=== PATIENT | male | born 1940 | race Caucasian/White ===

== ENCOUNTER 2018-11-22 22:11 | Inpatient (IN) | payer MEDICARE ==
[2018-11-22 23:14] LABS: ABS Basophils 0.1 10^3/ul (0-0.2); ABS Lymphocytes 0.8 10^3/ul (1.0-4.8); ABS Monocytes 0.3 10^3/ul (0-0.8); ABS Neutrophils 9.4 10^3/ul (1.5-7.7); Eosinophil % 0.3 %; Hematocrit 44 % (42-52); Hemoglobin 14.8 g/dL (14.0-18.0); Lymphocyte % 7.8 %; Mean Corpuscular HGB Conc 33 g/dL (31-36); Mean Corpuscular Hemoglobin 29 pg (27-31); Mean Corpuscular Volume 86 fL (80-94); Mean Platelet Volume 6.9 fL (7.4-10.4); Platelet Count 283 10^3/uL (150-450); Red Blood Count 5.16 10^6 /uL (4.18-5.48); Red Cell Distribution Width 14 % (10-15); White Blood Count 10.6 10^3/uL (3.5-10.8)
[2018-11-22 23:26] LABS: Activated Partial Thrombo Time 34.5 seconds (26.0-38.0); INR 1.04 (0.82-1.09)
[2018-11-22 23:29] LABS: ALT 28 U/L (7-52); AST 20 U/L (13-39); Albumin 4.2 g/dL (3.2-5.2); Albumin/Globulin Ratio 1.5 (1-3); Alkaline Phosphatase 100 U/L (34-104); Anion Gap 7 mmol/L (2-11); BUN/Creatinine Ratio 19.2 (8-20); Blood Urea Nitrogen 20 mg/dL (6-24); CO2 Carbon Dioxide 26 mmol/L (22-32); Calcium 9.8 mg/dL (8.6-10.3); Chloride 106 mmol/L (101-111); EGFR African American 83.6 (>60); EGFR Non-African American 69.1 (>60); Globulin 2.8 g/dL (2-4); Glucose 199 mg/dL (70-100); Sodium 139 mmol/L (135-145)
[2018-11-22 23:42] LABS: Troponin I 0.22 ng/mL (<0.04)
[2018-11-22] MEDS ORDERED: Metoprolol Tartrate IV* 1 MG/ML 5 ML VIAL IV ONE (23:44)
[2018-11-22] MEDS ORDERED: Enoxaparin(*) 100 MG/ML SYR SUBCUT ONE (23:44)
[2018-11-23] MEDS ORDERED: NS 0.9% 1000 ML** 1,000 ML IV SCH ×3 (00:30→13:00)
[2018-11-23] MEDS ORDERED: Metoprolol Tartrate TAB* 25 MG PO ONE (00:30)
[2018-11-23] MEDS ORDERED: Dextrose 50% VIAL 50 ml IV PUSH PRN (00:31)
[2018-11-23] MEDS ORDERED: Morphine 4 MG/ML VIAL (1 ml) 4 MG/ML VIAL IV ONE (00:32)
[2018-11-23] MEDS ORDERED: Ondansetron INJ* 2 MG/ML VIAL IV ONE (00:33)
[2018-11-23] MEDS ORDERED: Albuterol HFA INHALER* 8 gm MDI INH PRN (00:35)
[2018-11-23] MEDS ORDERED: Nitro 2% OINT* (Nitroglycerin) 1 INCH/PAK PAK TOPICAL ONE (00:50)
[2018-11-23] MEDS ORDERED: Morphine INJ* 2 MG/ML 1 ML SYRINGE (TWO MG - NEW SYRINGE VERSION) IV PRN (00:50)
--- NOTE | 2018-11-23 01:20 | ED ---
HPI Chest Pain - HPI Summary HPI Summary: The pt is a 78 yr old male presenting to [facility] via EMS c/o chest pain beginning 3 hours [employer]. He was walking when the chest pain started and reports diaphoresis as well. SOB and nausea are denied. The pain was bilateral across his chest and radiated through to the back. He states that the pain subsided when he was at rest and increased when he began walking again. He is currently in pain and describes his chest as feeling bruised, rating its severity a 3/10. He mentions that he had a similar episode of CP several years ago. He has not had a stress test before. The pt takes blood pressure medication and aspirin at home , and was administered 324 mg ASA and 3 nitro in the EMS. He has Hx of HTN, COPD , and Asthma. - History of Current Complaint Chief Complaint: EDChestPainROMI Time Seen by Provider: 11/22/18 22:26 Hx Obtained From: Patient Onset/Duration: Started Hours Ago, Still Present Time of Onset: 19:00 Timing: Intermittent Initial Severity: Mild Current Severity: Mild Pain Intensity: 3 Pain Scale Used: 0-10 Numeric Chest Pain Location: Diffuse Chest Pain Radiates: Yes Chest Pain Radiates To:: Back Character: Other: - "Bruised" Aggravating Factor(s): Exertion Alleviating Factor(s): Rest Associated Signs and Symptoms: Positive: Chest Pain, Diaphoresis. Negative: Shortness of Breath, Nausea - Allergy/Home Medications Allergies/Adverse Reactions: Allergies Allergy/AdvReac Type Severity Reaction Status Date / Time No Known Drug Allergies Allergy See Comment Verified 11/23/18 00:39 ENVIRONMENTAL Allergy Intermediate See Comment Uncoded 10/12/16 08:36 Home Medications: Home Medications Chlorhexidine MW 0.12% 473ML* [Peridex Mouth Wash 0.12%] 1 dose PO DAILY [History Confirmed 11/22/18] Metformin ER (NF) [Glucophage ER 750 MG TAB (NF)] 750 mg PO 1700 11/22/18 [ History Confirmed 11/22/18] [place]-3S/Dha/Epa/Fish Oil [Fish Oil 1,200 mg Softgel] 1 cap PO BID 11/22/18 [ History Confirmed 11/22/18] Polyethylene Glycol 3350* [Miralax*] 17 gm PO DAILY 11/22/18 [History Confirmed 11/22/18] PMH/Surg Hx/FS Hx/Imm Hx Endocrine/Hematology History: Reports: Hx Diabetes, Hx Anemia - CURRENTLY Cardiovascular History: Reports: Hx Hypertension - on meds, Other Cardiovascular Problems/Disorders - htn Denies: Hx Peripheral Vascular Disease Respiratory History: Reports: Hx Asthma - enviornmental, Hx Chronic Obstructive Pulmonary Disease (COPD) Denies: Other Respiratory Problems/Disorders GI History: Reports: Hx Gastroesophageal Reflux Disease, Other GI Disorders - colon cancer History: Denies: Hx Renal Disease Musculoskeletal History: Reports: Hx Arthritis - KNEES, Hx Back Problems, Hx Tendonitis - ROB SHOULDERS, Other Musculoskeletal History - OSTOEARTHORITI ON FINGERS Sensory History: Reports: Hx Contacts or Glasses - READING Denies: Hx Hearing Aid Opthamlomology History: Reports: Hx Contacts or Glasses - READING Neurological History: Denies: Other Neuro Impairments/Disorders - Cancer History Cancer Type, Location and Year: colon CA Hx Chemotherapy: No - Surgical History Surgery Procedure, Year, and Place: tonsils-1956; 3 abdominal surgeries Hx Anesthesia Reactions: No Infectious Disease History: No Infectious Disease History: Denies: Hx Clostridium Difficile, Hx Hepatitis, Hx Human Immunodeficiency Virus (HIV), Hx of Known/Suspected MRSA, Hx Shingles, Hx Tuberculosis, Hx Known/ Suspected VRE, Hx Known/Suspected VRSA, History Other Infectious Disease, Traveled Outside the [place] in Last 30 Days - Family History Known Family History: Negative: Blood Disorder - Social History Alcohol Use: Occasionally Alcohol Amount: 1 PER WEEK Substance Use Type: Reports: None Smoking Status (MU): Former Smoker Amount Used/How Often: PIPE 2 OZ PER DAY Length of Time of Smoking/Using Tobacco: 1984 Have You Smoked in the Last Year: No Review of Systems Positive: Skin Diaphoresis Positive: Chest Pain Negative: Shortness Of Breath Negative: Nausea All Other Systems Reviewed And Are Negative: Yes Physical Exam - Summary Physical Exam Summary: VITAL SIGNS: Reviewed. GENERAL: Patient is a well-developed and nourished male who is lying comfortable in the stretcher. Patient is not in any acute respiratory distress. HEAD AND FACE: No signs of trauma. No ecchymosis, hematomas or skull depressions. No sinus tenderness. EYES: PERRLA, EOMI x 2, No injected conjunctiva, no nystagmus. EARS: Hearing grossly intact. Ear canals and tympanic membranes are within normal limits. MOUTH: Oropharynx within normal limits. NECK: Supple, trachea is midline, no adenopathy, no JVD, no carotid bruit, no c- spine tenderness, neck with full ROM CHEST: Symmetric, no tenderness at palpation LUNGS: Clear to auscultation bilaterally. No wheezing or crackles. CVS: Regular rate and rhythm, S1 and S2 present, no murmurs or gallops appreciated. ABDOMEN: Soft, non-tender. No signs of distention. No rebound no guarding, and no masses palpated. Bowel sounds are normal. EXTREMITIES: FROM in all major joints, no edema, no cyanosis or clubbing. NEURO: Alert and oriented x 3. No acute neurological deficits. Speech is normal and follows commands. SKIN: Dry and warm Triage Information Reviewed: Yes Vital Signs On Initial Exam: Initial Vitals Temp Pulse Resp BP Pulse Ox 98 F 83 18 160/85 94 11/22/18 22:16 11/22/18 22:16 11/22/18 22:16 11/22/18 22:16 11/22/18 22:16 Vital Signs Reviewed: Yes Diagnostics - Vital Signs Vital Signs Temp Pulse Resp BP Pulse Ox 11/23/18 00:32 78 16 149/87 96 11/23/18 00:27 78 18 163/86 94 11/23/18 00:22 77 19 169/94 96 11/23/18 00:20 82 18 161/87 94 11/23/18 00:01 80 20 97 11/22/18 23:50 77 18 152/83 97 11/22/18 23:42 81 19 97 11/22/18 23:20 72 13 143/73 97 11/22/18 23:00 74 14 98 11/22/18 22:50 78 16 137/78 96 11/22/18 22:20 75 18 160/85 96 11/22/18 22:19 90 17 95 11/22/18 22:16 98 F 83 18 160/85 94 - Laboratory Lab Results: Lab Results 11/22/18 11/22/18 11/22/18 Range/Units 23:07 23:07 23:07 WBC 10.6 (3.5-10.8) 10^3/uL RBC 5.16 (4.18-5.48) 10^6 /uL Hgb 14.8 (14.0-18.0) g/dL Hct 44 (42-52) % MCV 86 (80-94) fL MCH 29 (27-31) pg MCHC 33 (31-36) g/dL RDW 14 (10-15) % Plt Count 283 (150-450) 10^3/uL MPV 6.9 L (7.4-10.4) fL Neut % (Auto) 88.3 % Lymph % (Auto) 7.8 % [place] % (Auto) 3.0 % Eos % (Auto) 0.3 % Baso % (Auto) 0.6 % Absolute Neuts (auto) 9.4 H (1.5-7.7) 10^3/ul Absolute Lymphs (auto) 0.8 L (1.0-4.8) 10^3/ul Absolute Monos (auto) 0.3 (0-0.8) 10^3/ul Absolute Eos (auto) 0.0 (0-0.6) 10^3/ul Absolute Basos (auto) 0.1 (0-0.2) 10^3/ul Absolute Nucleated RBC 0.0 10^3/ul Nucleated RBC % 0.0 INR (Anticoag Therapy) 1.04 (0.82-1.09) APTT 34.5 (26.0-38.0) seconds Sodium 139 (135-145) mmol/L Potassium 4.0 (3.5-5.0) mmol/L Chloride 106 (101-111) mmol/L Carbon Dioxide 26 (22-32) mmol/L Anion Gap 7 (2-11) mmol/L BUN 20 (6-24) mg/dL Creatinine 1.04 (0.67-1.17) mg/dL Est GFR ( Amer) 83.6 (>60) Est GFR (Non-Af Amer) 69.1 (>60) BUN/Creatinine Ratio 19.2 (8-20) Glucose 199 H (70-100) mg/dL Calcium 9.8 (8.6-10.3) mg/dL Total Bilirubin 0.50 (0.2-1.0) mg/dL AST 20 (13-39) U/L ALT 28 (7-52) U/L Alkaline Phosphatase 100 (34-104) U/L Troponin I 0.22 H* (<0.04) ng/mL Total Protein 7.0 (6.4-8.9) g/dL Albumin 4.2 (3.2-5.2) g/dL Globulin 2.8 (2-4) g/dL Albumin/Globulin Ratio 1.5 (1-3) Result Diagrams: 11/22/18 23:07 11/22/18 23:07 Lab Statement: Any lab studies that have been ordered have been reviewed, and results considered in the medical decision making process. - Radiology CXR Radiology Interpretation Completed By: ED Physician Summary of Radiographic Findings: No acute processes, pending official report. - EKG 0000 Cardiac Rate: NL - 76 BPM EKG Rhythm: Sinus Rhythm Summary of EKG Findings: Normal axis. Normal interval. No ischemic changes. 0025 Cardiac Rate: NL - 74 BPM EKG Rhythm: Sinus Rhythm EKG Comparison: No Significant Change - from EKG at 0000 Summary of EKG Findings: Normal axis. Normal interval. No ischemic changes. Re-Evaluation - Re-Evaluation First Eval Re-Evaluation Time: 00:25 Change: Unchanged Comment: Pt was feeling chest pain again. The pt was given morphine, lovenox, and moteprolol. 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 He was walking when the chest pain started and reports diaphoresis as well. SOB and nausea are denied. The pain was bilateral across his chest and radiated through to the back. He states that the pain subsided when he was at rest and increased when he began walking again. He is currently in pain and describes his chest as feeling bruised, rating its severity a 3/10. He mentions that he had a similar episode of CP several years ago. The pt takes blood pressure medication and aspirin at home, and was administered 324 mg ASA and 3 nitro in the EMS. He has Hx of HTN, COPD, and Asthma. An EKG taken @ 0000 reveals sinus rhythm, normal rate @ 76 bpm, normal axis, normal interval, no ischemic changes. A repeat EKG taken @ 0025 reveals sinus rhythm, normal rate @ 74 bpm, normal axis, normal interval, no ischemic changes, and no significant changes from the previous EKG @ 0000. A CXR reveals no acute processes. Test results with no significant abnormalities except for MPV @ 6.9, Absolute Neuts @ 9.4, Absolute Lymphs @ 0.8, Glucose @ 199, and Troponin I @ 0.22. In the ED course the pt was given 90 mg Lovenox SUBCUT, 5 mg Lopressor IV, 25 mg Lopressor PO, 4 mg Morphine IV, 0.5 inch NTG TOPICAL, and [address] De Guzman was consulted @ 4123. Dr. De Guzman will admit the pt to [facility]. - Diagnoses Provider Diagnoses: Acute coronary syndrome - Provider Notifications Discussed Care Of Patient With: Shari De Guzman Time Discussed With Above Provider: 23:50 Instructed by Provider To: Admit As Inpatient Discharge - Sign-Out/Discharge Documenting (check all that apply): Patient Departure - admit Patient Received Moderate/Deep Sedation with Procedure: No - Discharge Plan Condition: Stable Disposition: ADMITTED TO [facility] - Attestation Statements Document Initiated by Scribe: Yes Documenting Scribe: FRANCIS RODNEY Provider For Whom Scribe is Documenting (Include Credential): TONY ANTONIO MD Scribe Attestation: IFRANCIS, scribed for TONY ANTONIO MD on 11/23/18 at 0206. Status of Scribe Document: Ready
[2018-11-23 01:59] LABS: Troponin I 1.06 ng/mL (<0.04)
[2018-11-23] MEDS: Acetaminophen TAB* 325 MG PO PRN ×2 (02:38→21:16)
--- NOTE | 2018-11-23 04:44 | HP ---
CC: Dr. Christopher Mojica; Dr. Patton * HISTORY AND PHYSICAL: DATE OF ADMISSION: 11/23/18 PRIMARY CARE PROVIDER: Dr. Christopher Mojica. ONCOLOGY: Dr. Patton. CHIEF COMPLAINT: Chest pain. HISTORY OF PRESENT ILLNESS: Parrish Masterson is a 78-year-old male with history of colon cancer, status post resection in 2012 and currently in remission, who presented to the emergency department with concerns of chest pain. The patient stated that he has been having mild chest pains with exercise for the past 3 to 4 years. He stated that he was not very concerned about them since they did not happen "all the time with exercise." Today, he was walking down the hill to see a construction work side close to his home and started having mild chest pain with walking. On his way back when he had to walk up the hill, the chest pain was more severe. When he stopped, the pain would go away and then started again. Eventually, he got home and the pain went away for about 15 minutes but then it restarted again when he got up to call his sister. At that point, it was 9/10 in intensity, he broke out in a sweat and he was nauseated. He denied any shortness of breath. He was given nitroglycerin in the ambulance and the pain basically went away. He currently has discomfort substernally approximately 1 to 2. The pain is not pleuritic. It is localized substernally, radiating to bilateral lower chest and the back. His troponin was 0.22 and he is going to be admitted with a diagnosis of unstable angina. PAST MEDICAL HISTORY: 1. History of colon adenocarcinoma, status post ileostomy, ileostomy reversal and colon cancer resection over the course of the years of 2012 and 2013. The patient did not receive chemo or radiation at that point and that was his choice , although it was offered for him at that point. He is now in remission for the past 5 years. 2. History of hypertension. 3. History of asthma. 4. History of gastroesophageal reflux disease. 5. Diabetes type 2. MEDICATIONS AT HOME: Include: 1. Metformin ER mg daily. 2. Fish oil 1 capsule b.i.d. 3. Chlorhexidine mouthwash on a p.r.n. basis. 4. MiraLax 17 g daily p.r.n. 5. Amlodipine 10 mg daily. 6. Albuterol inhaler on a p.r.n. basis. 7. Accolate 20 mg b.i.d. 8. Prevacid 15 mg daily. ALLERGIES: No known drug allergies. FAMILY HISTORY: Positive for father with history of carcinoma, of [place] in his 60s. SOCIAL HISTORY: The patient quit smoking in 1983. He denies any alcohol or drug use. His in the past year with colon cancer. 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 As his surrogate, he names his son, Mejia Masterson. REVIEW OF SYSTEMS: Please see history of present illness. All the remaining 12 systems were reviewed with the patient and were otherwise negative. PHYSICAL EXAMINATION GENERAL: The patient is a very pleasant 78-year-old male, who is in no acute distress. Alert, awake, and oriented x3. VITAL SIGNS: Blood pressure 143/73, heart rate of 71 and regular, respiratory rate 13, oxygen saturation 97% on 2 L of oxygen via nasal cannula, temperature of 98.0. HEENT: Head: Atraumatic, normocephalic. Eyes: Pupils are equal, reactive to light and accommodation. Oropharynx is clear. Mucosa moist. NECK: Supple. No JVD. No bruits bilaterally. RESPIRATORY: Clear to auscultation bilaterally. CARDIOVASCULAR: Regular rate and rhythm. No murmur. ABDOMEN: Soft, nontender. Bowel sounds are present in all 4 quadrants. EXTREMITIES: There is no edema. Pulses are +2 bilaterally. No clubbing or cyanosis. NEUROLOGIC: Speech is clear. Cranial nerves II through XII grossly intact. Motor strength is 5/5 bilaterally. PSYCHIATRIC: The patient is oriented x3 with no evidence of anxiety or depression. DIAGNOSTIC STUDIES/LAB DATA: Laboratory data showed a sodium of 139, potassium of 4.0, chloride 106, carbon dioxide 26, BUN 20, creatinine 1.04. Liver function tests were unremarkable. Troponin of 0.22. CBC showed white blood cell count of 10.6, hemoglobin of 14.8, hematocrit of 44, and platelets of 183. The patient's portable chest x-ray reviewed by myself prior to the official radiologist report, showed no evidence of mediastinal widening and grossly clear bilateral lung jolley. It is prior to the official radiologist report that is going to be obtained in the morning. The patient's EKG was performed twice and showed normal sinus rhythm with a heart rate of 74 beats per minute with no ST changes. ASSESSMENT AND PLAN: 1. For unstable angina, the patient was already treated with Lovenox 1 mg/kg in the emergency department. The patient is going to be placed on aspirin on a daily basis with low dose of beta-ta and metoprolol tartrate 25 mg p.o. now. I am going to place a nitroglycerin paste on the patient's skin. So far, his discomfort had been minimal after the initial treatment in the emergency department. His troponins are going to be continued to be obtained. I will also obtain EKG in the morning and as well as transthoracic echocardiogram. The patient is going to be placed n.p.o. apart from sips of liquids for possible cardiac catheterization in the morning. I will talk with the Cardiology Service in the morning. 2. For the patient's history of dyslipidemia, fasting lipid profile is going to be obtained. 3. History of asthma. There is no exacerbation noted. Albuterol is going to be continued on as needed basis. 4. For history of gastroesophageal reflux disease, the patient is going to be placed on Pepcid intravenously while n.p.o. 5. For DVT prophylaxis, the patient is going to be placed on Lovenox subcutaneously. 6. The patient's code status is full and his surrogate is his son. TIME SPENT: Approximately 65 minutes was spent on admission of this patient, more than half that time was spent [id number] with the patient during the interview and physical exam. [id number]/[facility] #: [id number] ALFONSO
[2018-11-23] MEDS: Insulin LISPRO* 1 UNITS UNIT SUBCUT SCH ×3 (05:45→16:14)
[2018-11-23 06:09] LABS: Cholesterol 176 mg/dL; LDL Cholesterol 113 mg/dL; Triglycerides 94 mg/dL
[2018-11-23 06:10] LABS: Troponin I 2.52 ng/mL (<0.04)
[2018-11-23] MEDS ORDERED: Metoprolol Tartrate TAB* 25 MG PO SCH (09:00)
[2018-11-23] MEDS ORDERED: Aspirin EC TAB* 325 MG PO SCH (09:00)
[2018-11-23] MEDS: Famotidine IV* 10 MG/ML 2 ML (20 mg) IV SLOW PU SCH ×2 (09:13→21:17)
[2018-11-23] MEDS ORDERED: diPHENhydraMINE PO* 25 MG PO PRN (09:19)
[2018-11-23] MEDS ORDERED: diPHENhydraMINE IV* 50 MG/ML 1 ml VIAL (BENADRYL) SLOW PUSH PRN (09:19)
[2018-11-23] MEDS ORDERED: Perflutren Lipid Microsphere* 3 ML VIAL ONE (10:25)
[2018-11-23 10:56] LABS: Troponin I 2.65 ng/mL (<0.04)
[2018-11-23] MEDS ORDERED: Enoxaparin(*) 100 MG/ML SYR SUBCUT SCH (11:00)
[2018-11-23] MEDS ORDERED: Midazolam* 1 MG/ML 5 ML VIAL (5 MG) ONE (11:44)
[2018-11-23] MEDS ORDERED: fentaNYL* 50 MCG/ML 2 ML VIAL (100 MCG VIAL) ONE (11:44)
[2018-11-23] MEDS ORDERED: Heparin(*) 1000 UNIT/ML 10 ML VIAL CATH LAB IV ONE (11:44)
[2018-11-23] MEDS ORDERED: Lidocaine 1% INJ* 10 MG/ML 30 ML SDV ONE (11:44)
[2018-11-23] MEDS ORDERED: VERAPAMIL 2.5 MG/ML 2 ML VIAL ** 5 mg/2 ml ONE (11:44)
[2018-11-23] MEDS ORDERED: nitroGLYCERIN DRIP* 25,000 MCG/250 ML BTL ONE (11:44)
[2018-11-23] MEDS ORDERED: Heparin 2 UNITS/ML IVPREMIX* 3,000 UNIT/1,500 ML BAG IV ONE (11:45)
[2018-11-23] MEDS ORDERED: Iodixanol 320 (CONTRAST) 100 ML SDV ONE ×2 (11:45→12:41)
--- NOTE | 2018-11-23 13:38 | ECHO ---
*[facility]* [place] [address] Fax #: [phone] Transthoracic Echocardiogram Patient: Parrish Masterson : 1940 Study Date: 11/23/2018 Age: 78 Gender: M HR: Height: 71 in /180.3 cm BSA: 2.11 m^2 Weight: 199.6 lb /90.7 kg BMI: 27.9 kg/m^2 *Record Retrieval Specialist: Ana Panda [facility] *Referring Physician: * Shari De Guzman *Reading Physician: * Judy Davis MD Indications: Chest Pain, unspecified. History: Chronic obstructive pulmonary disease. Risk factors: Hypertension. Diabetes mellitus. Conclusions Summary: - Left ventricle: The cavity size is mildly reduced. Wall thickness is mildly increased. Systolic function is at the lower limits of normal. The estimated ejection fraction is 50%. Hypokinesis of the apicalanteroseptal myocardium. - Right ventricle: Systolic function is normal. - Aortic valve: The findings are consistent with mild stenosis. The mean systolic gradient is 8.0 mm Hg. The valve area by the velocity-time integral method is 1.60 cm^2. The ratio of LVOT to aortic valve peak velocity is 0.5. The valve area by the peak velocity method is 1.60 cm^2. - No prior echocardiogram to compare. Study data: Transthoracic echocardiogram. Procedure: Transthoracic echocardiography was performed. Image quality was poor. Intravenous Definity , 3 mlswas administered. Complete 2D, spectral Doppler, and color flow Doppler. Location: Bedside. Patient status: Inpatient. Patient room number: 442 01. Rhythm: Normal sinus rhythm. Findings Left ventricle: The cavity size is mildly reduced. Wall thickness is mildly increased. Systolic function is at the lower limits of normal. The estimated ejection fraction is 50%. Regional wall motion abnormalities: Hypokinesis of the apicalanteroseptal myocardium. Doppler parameters are consistent with abnormal left ventricular relaxation (grade 1 diastolic dysfunction). Right ventricle: The cavity size is normal. Systolic function is normal. Left atrium: The atrium is normal in size. Right atrium: Not well visualized. Mitral valve: Is mildly calcified. The leaflets are normal thickness. There is no evidence of stenosis. There is trace regurgitation. Aortic valve: The annulus is mildly calcified. The valve is trileaflet. The leaflets are mildly thickened. The findings are consistent with mild stenosis. There is no significant regurgitation. Tricuspid valve: The valve is structurally normal. There is no evidence of stenosis. There is trace regurgitation. Pulmonic valve: The leaflets are normal thickness. There is no evidence of stenosis. There is trace regurgitation. Aorta: The aortic root appears normal. The aortic arch appears normal. Pericardium: There is no significant pericardial effusion. Pulmonary arteries: Not well visualized. Systolic pressure can not be accurately estimated. Systemic veins: Inferior vena cava: Not well visualized. Measurements Left ventricle Value Ref Aortic valve continued Value Ref JEFF, LAX (L) 3.3 cm 4.2 - 5.8 Peak v, S 1.8 m/sec ---- ESD, LAX 2.5 cm 2.5 - 4.0 VTI, S 44.0 cm ---- FS, LAX 26 % 25 - 43 Mean grad, S 8.0 mm Hg ---- PW, ED, LAX 1.0 cm 0.6 - 1.0 Peak grad, S 13.0 mm Hg ---- EF 52 % 52 - 72 LVOT/AV, VTI ratio 0.52 ---- E', lat theodore, TDI (L) 5.5 cm/sec >=10.0 VERÓNICA, VTI 1.60 cm^2 ---- E/e', lat theodore, 15 VERÓNICA, Vmax 1.60 cm^2 --- - TDI E', med theodore, TDI (L) 6.0 cm/sec >=7.0 Mitral valve Value Ref E/e', med theodore, 14 Peak E 0.82 m/sec --- - TDI Peak A 1 m/sec ---- E', avg, TDI 5.8 cm/sec Decel time 202 ms --- - E/e', avg, TDI 14 <=14 PHT 97 ms ---- Mean grad, D 2.0 mm Hg ---- LVOT Value Ref Peak grad, D 4.0 mm Hg ---- Diam, S 2.00 cm Peak E/A ratio 0.8 ---- Area 3.1 cm^2 MVA, PHT 2.3 cm^2 ---- Peak damien, S 0.9 m/sec VTI, S 23.0 cm Pulmonic valve Value Ref Mean grad, S 2 mm Hg Peak v, S 0.54 m/sec ---- SV 71 ml Peak grad, S 1.0 mm Hg ---- Ventricular septum Value Ref Aortic root Value Ref IVS, ED (H) 1.2 cm 0.6 - 1.0 Root diam 3.1 cm <4.2 Right ventricle Value Ref Ascending aorta Value Ref JEFF, LAX 3.0 cm AAo AP diam, S 2.9 cm ---- Left atrium Value Ref Aortic arch Value Ref AP dim, ES 4.00 cm 3.00 - Arch diam 3.1 cm ---- 4.00 Decending aorta Value Ref Right atrium Value Ref Gabriela peak damien 0.84 m/sec ---- Estimated RAP 8 mm Hg Aortic valve Value Ref Theodore diam, ED 2.0 cm Legend: (L) and (H) rudy values outside specified reference range. Prepared and electronically signed by Judy Davis MD 11/23/2018 13:38
--- NOTE | 2018-11-23 16:10 | CONS ---
CC: Dr. Mojica * CONSULTATION REPORT: DATE OF CONSULT: 11/23/18 ATTENDING PHYSICIAN: Dr. Malone, Cardiology.* (DICTATED BY MARTA SCHAFFER NP) PRIMARY PHYSICIAN: Dr. Mojica. PRIMARY SUPERVISOR TOWER: None. CHIEF COMPLAINT: Chest pain. HISTORY OF PRESENT ILLNESS: This is a pleasant 78-year-old male patient with a notable history of sigmoid adenocarcinoma, treated with ileostomy, with reversal in 2013; hypertension; asthma; GERD; and type 2 diabetes mellitus. The patient states that he has had a 3- to 4-year history of exertional substernal chest pain described as heavy like in nature, occurring with activities such as splitting wood, going upstairs, and walking on an incline. He adds that for the past 8 to 12 months symptoms have been progressive in regards to frequency and are now occurring with activities that he historically would be able to tolerate. Apparently, he lost his 2 months ago due to complications from colon cancer. He adds that on Wednesday while walking with his son to a local construction site that is a quarter- mile in length, he developed chest pain with incline and it resolved within 5 minutes once he stopped activity. Yesterday around 7:30 p.m., he drove to the same construction site, while walking on a flat gradient he started to develop substernal chest pain rated 2/10. The patient states the pain progressively got worse on his way back going up incline. It persisted until he drove to his home and sat in a seated position. Total time in the episode was roughly 30 minutes. He states after pain resolved he got up out of his chair and walked outside to go to the bathroom when he developed the second episode of chest pain. He states that he was concerned because the episode occurred with minimal activity such as walking to the door. He called his sister who prompted him to call 911. En route to [facility], he was given sublingual nitroglycerin by EMS that resolved the pain. He has not had recurrent symptoms since then. He denies associated symptoms such as palpitations, sensation of heart racing, dizziness, syncope, diaphoresis and states pain radiated to the center portion of his back. PAST MEDICAL HISTORY: 1. Asthma. 2. GERD. 3. Hypertension. 4. Hyperlipidemia. 5. Sigmoid cancer, in remission. 6. Type 2 diabetes mellitus. PAST SURGICAL HISTORY: 1. The patient had colostomy, ileostomy with reversal in 2013. 2. Tonsillectomy. HOME MEDICATIONS: Per admission med rec. ALLERGIES: No known drug allergies. Denies allergies to SHELLFISH, CONTRAST DYE, or RED DYE. FAMILY HISTORY: Positive for cardiovascular disease involving first-degree relative at age of 61. SOCIAL HISTORY: The patient is a former tobacco user. He states he smoked a pipe and cigar for 25 years and quit in 1983. Drinks beer on occasion. Denies illegal drug use. 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 He is recently . In regards to activity, he remains active, cutting wood and gardening. PHYSICAL EXAM: Temperature 97.8, pulse 80, respirations 14, blood pressure 140/ 93. General: The patient is lying in bed upon entering the room, cooperative with examination, alert and oriented x3, in no apparent distress. HEENT: Head is atraumatic, normocephalic. Oral mucosa is moist. Tongue is midline. Neck is supple. Trachea midline. No JVD. No carotid bruits. Cardiac: Normal S1, S2. Regular rate and rhythm. There is a grade 2/6 early systolic murmur auscultated at the right sternal border radiating into left sternal border. There is a grade 1/5 diastolic mitral murmur auscultated at the left axilla. No gallop or rub. Lungs: Auscultated posteriorly, slight inspiratory rales noted in the left lower base, otherwise no other adventitious breath sounds are auscultated. /GI: Abdomen is soft, nontender, nondistended. Normal bowels sounds x4. No hepatomegaly to palpation. Extremities: Examined, the patient has strong right femoral pulse palpated. The patient has evidence of venous insufficiency. The patient has 2+ dorsalis pedis pulse palpated bilaterally and symmetrically. DIAGNOSTIC STUDIES/LAB DATA: Blood work reviewed. White count 10.6, hemoglobin 14.8, hematocrit 44, platelets 293. Sodium 139, potassium 4, chloride 106, carbon dioxide 26, BUN 21, creatinine 1.04, glucose 199. Troponin #1, 0.22; troponin #2, 1.06; troponin #3, 2.52. LDL 115. ECG was reviewed, demonstrates normal sinus rhythm, rate 63 with nonspecific T- wave flattening in lead III, aVF and II. Chest x-ray from 11/22/18; per radiology report, no evidence for acute cardiopulmonary process. ASSESSMENT AND PLAN: 1. [id number] myocardial infarction; the patient has had crescendo angina occurring over the past 8 to 12 months with increased frequency, now occurring with activities that he historically was able to tolerate. Last episode was yesterday evening, resolved with administration of sublingual nitroglycerin. The patient has nonspecific T-wave flattening in inferior leads. Troponin continues to trend up, last isoenzyme was 2.52. The patient received subcutaneous Lovenox per ACS protocol, last dose is at midnight last night. The patient would benefit from cardiac catheterization. Procedure was reviewed the patient including risks and benefits not limited to bleeding, infection, vessel damage, risk of contrast induced nephropathy, possibility of stroke, heart attack, , requirement for dual antiplatelet therapy or referral for bypass surgery. The patient denies any history of bleeding complications in the past. Platelets are stable. He is agreeable to proceeding with left heart catheterization. The consent should be obtained by signs and displays salesperson, Dr. Kimberly Malone. I would recommend updating echocardiogram given systolic aortic murmur on examination. We will reduce aspirin to 81 mg a day, initiate Lopressor 12.5 mg a day, start Lipitor 80 mg p.o. q.h.s., and make further recommendations post cardiac catheterization. 2. Hyperlipidemia. LDL was 115. Given coronary artery disease, recommend LDL less than 70. We will start Lipitor 80 mg p.o. q.h.s. We will need repeat fasting lipid and liver function tests in 6 to 8 weeks' time. 3. History of hypertension. Norvas is on hold. We will initiate Lopressor 12.5 mg p.o. b.i.d. and titrate as needed. 4. Systolic aortic valve murmur and soft diastolic mitral valve murmur. We will obtain an echocardiogram and follow. 5. Disposition. Pending course. The patient is full code. Dr. Malone has personally seen and examined the patient, agrees with the above assessment and plan. MARTA SCHAFFER, COMPUTER ASSEMBLER [id number]/[facility] #: [id number] ALFONSO
--- NOTE | 2018-11-23 16:10 | CATH ---
CC: Hugh Jordan; Dr. Kimberly Malone CATHETERIZATION REPORT: DATE OF PROCEDURE: 11/23/18 PRIMARY CARE PHYSICIAN: Dr. Mojica at [place]. PROCEDURES: Right radial artery access, bilateral selective coronary cineangiography. HISTORY: A 78-year-old male with stable exertional angina for 3 to 4 years, with more recent decreas ing threshold for angina. The day prior to admission, he had prolonged 2 to 3 hours of chest pain at rest. Subsequent troponin positive to 2.5. Echocardiogram showed distal anterior septal and apical akinesis, LVEF 45% to 50%. Mild aortic stenosis. [place] score 3 to 4, AUC appropriate. PROCEDURE ACCESS: Right radial artery sheath 6F Slender. DIAGNOSTIC CATHETERS: 5F TIG4, 5FR 4, 5FL 3.5. There was subclavian tortuosity easily passed with a Wholey wire. I was not able to easily cross the aortic valve with a pigtail with a J or straight-ti p floppy wire. LV pressure and LV gram were therefore not performed. MEDICATIONS: 1. Subcu lidocaine. 2. IV Versed. 3. IV fentanyl. 4. Heparin 3000 units. 5. Verapamil 3 mg. 6. Nitroglycerin 300 mcg IA. HEMODYNAMICS: Initial AO 126/64, final BP 144/73. ANGIOGRAPHY: Left main: The left main is normal in size and length, has minimal distal taper without significant stenosis. LAD: The LAD is large, has proximal mild luminal irregularity, the proximal LAD then supplies a larg e caliber first diagonal which has ostial 60% stenosis, the LAD at the diagonal origin has a 90% sten osis with haziness consistent with thrombus. The LAD is large, continues and supplies to distal infer ior septum, has no distal stenosis. The third diagonal is very small, has a proximal 80% stenosis, i t is too small for revascularization. Circumflex: The circumflex is large, not dominant, supplies a moderate first marginal which has an e ccentric 50% to 60% stenosis, then bifurcates. The circumflex then supplies a large posterolateral, a more distal smaller posterolateral branch is occluded at the origin without a clearly identifiable entry point, fills by [id number]-[id number] collaterals, reference diameter approximately 1.5 to 2 mm. RCA: The RCA is moderate, dominant, with a proximal 50% to 60% stenosis, distally supplies a small t o moderate PDA and posterolateral. CONCLUSION: 1. Three-vessel disease with culprit LAD diagonal lesion with likely plaque rupture and thrombus inv olving the origin of a large diagonal branch. His RCA and OM stenoses are intermediate, his circumfl ex posterolateral distal branch is occluded and small. We will discuss with him culprit lesion LAD d iagonal revascularization versus bypass grafting with pros and cons. 2. Successful right radial artery access. [id number]/[facility] #: [id number]
--- NOTE | 2018-11-23 16:52 | PN ---
Subjective Date of Service: 11/23/18 Interval History: Patient had cath through RT radial artery earlier this afternoon. He denies chest pain, dyspnea. Has some discomfort RT wrist. According to Dr. Davis, patient has multi-vessel disease, does not want CABG. He is willing to have stent to culprit lesion, where clot was visualized. Will need to be done at higher level of care, [facility], [facility], etc. Family History: Unchanged from Admission Social History: Unchanged from Admission Past Medical History: Unchanged from Admission Objective Active Medications: Acetaminophen (Tylenol Tab*) 650 mg PO Q4H PRN PRN Reason: FEVER/PAIN Last Admin: 11/23/18 02:38 Dose: 650 mg Albuterol (Ventolin Hfa Inhaler*) 1 puff INH Q4H PRN PRN Reason: SHORTNESS OF BREATH Aspirin (Aspirin Ec Tab*) 81 mg PO DAILY [facility] Atorvastatin Calcium (Lipitor*) 80 mg PO 2100 [facility] Dextrose (Dextrose 50% Vial 50 Ml*) 25 ml IV PUSH .FOR FS < 60 - SS PRN PRN Reason: FS < 60 Diphenhydramine HCl (Benadryl Iv*) 25 mg SLOW PUSH ONCE PRN PRN Reason: house calls nurse practitioner to Risk Compliance Analyst Diphenhydramine HCl (Benadryl Po*) 25 mg PO ONCE PRN PRN Reason: house calls nurse practitioner to Risk Compliance Analyst Famotidine (Pepcid Iv*) 20 mg IV SLOW PU BID [facility] Last Admin: 11/23/18 09:13 Dose: 20 mg Sodium Chloride (Ns 0.9% 1000 Ml) 1,000 mls @ 100 mls/hr IV .per rate [facility] Stop: 11/23/18 16:59 Insulin Human Lispro (Humalog*) 0 units SUBCUT Q6HR [facility]; Protocol Last Admin: 11/23/18 16:14 Dose: Not Given Metoprolol Tartrate (Lopressor Tab*) 12.5 mg PO BID [facility] Last Admin: 11/23/18 09:14 Dose: 12.5 mg Morphine Sulfate (Morphine Inj (Syringe))*) 2 mg IV Q2H PRN PRN Reason: PAIN - MODERATE Vital Signs - 8 hr 11/23/18 11/23/18 11/23/18 13:09 13:13 13:25 Temperature Pulse Rate 56 Respiratory 17 14 Rate Blood Pressure 139/72 (mmHg) O2 Sat by Pulse 94 96 Oximetry 11/23/18 11/23/18 11/23/18 13:40 13:55 14:00 Temperature Pulse Rate 57 60 56 Respiratory 16 21 20 Rate Blood Pressure 134/69 145/75 (mmHg) O2 Sat by Pulse 94 96 95 Oximetry 11/23/18 11/23/18 11/23/18 14:10 14:25 14:40 Temperature Pulse Rate 61 52 56 Respiratory 18 28 Rate Blood Pressure 145/91 147/75 149/68 (mmHg) O2 Sat by Pulse 98 96 95 Oximetry 11/23/18 11/23/18 11/23/18 14:55 15:00 15:12 Temperature Pulse Rate 64 63 56 Respiratory 16 21 18 Rate Blood Pressure 129/88 138/69 (mmHg) O2 Sat by Pulse 97 97 98 Oximetry 11/23/18 11/23/18 15:25 15:56 Temperature 37.1 C Pulse Rate 56 59 Respiratory 16 16 Rate Blood Pressure 133/63 128/62 (mmHg) O2 Sat by Pulse 96 98 Oximetry Oxygen Devices in Use Now: None Appearance: alert, no distress Eyes: No Scleral Icterus Ears/Nose/Mouth/Throat: NL Teeth, Lips, Gums Neck: NL Appearance and Movements; NL JVP, Trachea Midline Respiratory: Symmetrical Chest Expansion and Respiratory Effort, Clear to Auscultation Cardiovascular: NL Sounds; No Murmurs; No JVD, RRR Abdominal: NL Sounds; No Tenderness; No Distention Lymphatic: No Cervical Adenopathy Skin: No Rash or Ulcers Neurological: Alert and Oriented x 3 Lines/Tubes/Other Access: Clean, Dry and Intact Peripheral IV Nutrition: Taking PO's Result Diagrams: 11/22/18 23:07 11/22/18 23:07 Additional Lab and Data: Laboratory Tests 11/23/18 11/23/18 11/23/18 05:35 05:36 10:02 APTT POC Glucose (mg/dL) 135 H Troponin I 2.52 H* 2.65 H* 11/23/18 11/23/18 11/23/18 10:02 13:48 15:58 APTT 44.7 H POC Glucose (mg/dL) 138 H 107 H Troponin I EKG Data: CATH: 3-vessel disease, clot w/ ruptured plaque at bifurcation LAD and L circ, moderate disease in Circ, RCA Echo: EF 50%, mild Assess/Plan/Problems-Billing Assessment: 78 year old w/ non-STEMI, cath shows culprit lesion at location that requires higher level intervention - Patient Problems (1) Non-ST elevated myocardial infarction (non-STEMI) Current Visit: Yes Status: Acute Priority: High Code(s): I21.4 - NON-ST ELEVATION (NSTEMI) MYOCARDIAL INFARCTION SNOMED Code(s): 43665230 Comment: -Discussed w/ Dr. Malone -Will need stent placed at [facility] -Dr. Alcides Vidal accepted patient tomorrow morning for procedure -Will be on Brillinta post-cath. -Spoke with transfer center, will plan transfer tomorrow early AM, [phone]. (2) Type 2 diabetes mellitus Current Visit: Yes Status: Acute Priority: Medium Comment: -Diabetes under good control -Continue lispro sliding scale (3) Hypertension Current Visit: Yes Status: Acute Priority: Medium Code(s): I10 - ESSENTIAL (PRIMARY) HYPERTENSION SNOMED Code(s): 89924481 Comment: -BP in goal range, on metoprolol (4) DVT prophylaxis Current Visit: Yes Status: Acute Priority: Low Code(s): Z29.9 - ENCOUNTER FOR PROPHYLACTIC MEASURES, UNSPECIFIED SNOMED Code(s): 210628100 Comment: -SCDs
[2018-11-23] MEDS ORDERED: Clopidogrel TAB* 300 MG PO ONE (17:14)
[2018-11-23] MEDS ORDERED: Enoxaparin(*) 100 MG/ML SYR SUBCUT ONE (17:16)
[2018-11-23 18:03] LABS: Troponin I 1.26 ng/mL (<0.04)
[2018-11-23] MEDS: Metoprolol Tartrate TAB* 25 MG PO SCH (19:33)
[2018-11-23] MEDS ORDERED: Atorvastatin* 80 MG TAB PO SCH (21:00)
[2018-11-23] MEDS ORDERED: Atorvastatin* 80 MG TAB PO ONE (21:00)
[2018-11-24] MEDS: Insulin LISPRO* 1 UNITS UNIT SUBCUT SCH ×2 (00:36→05:57)
[2018-11-24] MEDS: Metoprolol Tartrate TAB* 25 MG PO SCH ×2 (00:39→05:58)
[2018-11-24 07:03] LABS: EGFR African American 98.7 (>60); EGFR Non-African American 81.6 (>60)
[2018-11-24 07:46] VITALS: BP 131/60
[2018-11-24] MEDS: Famotidine IV* 10 MG/ML 2 ML (20 mg) IV SLOW PU SCH (08:11)
--- NOTE | 2018-11-24 08:46 | TRS ---
CC: Dr. Christopher Mojica; Dr. Kimberly Malone; Dr. Alcides Vidal, [facility] * TRANSFER SUMMARY: DATE OF ADMISSION: 11/23/18 DATE OF TRANSFER: 11/24/18 ACCEPTING PHYSICIAN FOR THE TRANSFER: Dr. Vidal, [facility], [place]. PRIMARY DIAGNOSES: 1. [id number] myocardial infarction. 2. Coronary artery disease in 3 vessels with a culprit lesion at the origin of the first diagonal and the left anterior descending. SECONDARY DIAGNOSES: 1. History of colon cancer, resected in 2013. 2. Hypertension. 3. Type 2 diabetes. 4. Asthma. 5. Gastroesophageal reflux disease. MEDICATIONS AT TIME OF TRANSFER: 1. Acetaminophen 650 mg p.o. q.4 hours as needed. 2. Albuterol inhaler 1 puff q.4 hours as needed for wheezing. 3. Aspirin 81 mg p.o. daily. 4. Atorvastatin 80 mg p.o. q.p.m. 5. Plavix 75 mg p.o. daily. 6. D50 25 mL IV push for fingerstick less than 60. 7. Famotidine 20 mg IV b.i.d. 8. Humalog insulin sliding scale. 9. Metoprolol 25 mg p.o. q.6 hours. 10. Morphine 2 mg IV q.2 hours p.r.n. HOSPITAL COURSE: A 78-year-old patient with multiple risk factors for heart disease, presented with exertional chest pain that had been present for 4 years and had worsened over the past 8 months. The chest pain became more prominent in the last 5 days and persisted for a longer period of time until the patient came to the [facility]. EKG demonstrated nonspecific T-wave flattening of lead II, III and aVF. Initial troponin is 0.22 and maddi to 2.65 on serial rechecks. Other lab work during the hospital stay showed normal CBC, normal coagulation studies, normal creatinine. Blood sugar between 107 and 157. LDL cholesterol of 113. Chest x-ray taken on admission showed no evidence for infiltrate or mass. The patient was seen by cardiology consult and taken to the catheterization lab by Dr. Malone. The findings of the cath were proximal LAD was large, the first diagonal had a 60% ostial stenosis, and the LAD at the diagonal origin had 90% stenosis with haziness consistent with thrombus. There was moderate disease in the circumflex and right coronary artery as well. Echocardiogram was also obtained on the day of admission which showed ejection fraction of 50%, hypokinesis in the apical and anteroseptal myocardium, mild aortic stenosis. After the catheterization, it was discussed whether the patient should have a triple-vessel bypass versus intervention on the culprit lesion at the first diagonal. Dr. Malone discussed the case with Dr. Vidal in [place] and it was decided the patient can be transferred there to a hospital that has cardiothoracic surgery backup for this complex cardiac intervention. The patient is agreeable to go to [place] for the next phase of his care. DISPOSITION: To [facility] in [place]. DIET: Diabetic, low fat, low salt. ACTIVITY: Out of bed to chair. STATUS: Inpatient. CONDITION: Stable. [id number]/[facility] #: [id number] MTDD
[2018-11-24] MEDS ORDERED: Aspirin EC TAB* 81 MG TAB.EC PO SCH (09:00)
[2018-11-24] MEDS ORDERED: Clopidogrel TAB* 75 MG PO SCH (09:00)
== END 2018-11-24 08:54 | disposition short-term general hospital (02) | DRG 282 ==
LOC: ED 22:11 → MEDTELE 11-23 00:33
PROVIDERS: ADMIT Internal Medicine; ATTEND Internal Medicine
PROC: B211YZZ Fluoroscopy of Multiple Coronary Arteries using Other Contrast (ICD-10-PCS; 2018-11-23)
PROC: 4A023N7 Measurement of Cardiac Sampling and Pressure, Left Heart, Percutaneous Approach (ICD-10-PCS; principal; 2018-11-23 11:00)
DX: I21.4 Non-ST elevation (NSTEMI) myocardial infarction (principal); I25.110 Atherosclerotic heart disease of native coronary artery with unstable angina pectoris; I10 Essential (primary) hypertension; E11.9 Type 2 diabetes mellitus without complications; J45.909 Unspecified asthma, uncomplicated; K21.9 Gastro-esophageal reflux disease without esophagitis; E78.5 Hyperlipidemia, unspecified; Z85.038 Personal history of other malignant neoplasm of large intestine; Z79.84 Long term (current) use of oral hypoglycemic drugs; Z79.51 Long term (current) use of inhaled steroids; Z79.899 Other long term (current) drug therapy; Z82.49 Family history of ischemic heart disease and other diseases of the circulatory system; Z80.9 Family history of malignant neoplasm, unspecified; Z87.891 Personal history of nicotine dependence
CPT/HCPCS: 36415; 71045; 80048; 80053; 80061; 84484; 85025; 85610; 85730; 86850; 86900; 86901; 93005; 93306; 93454; 99284; A9270-GY; C1769; C8929; J1644; J1650; J2250; J2270; J2405; J3010; J3490